=== PATIENT | female | born 1985 ===

== ENCOUNTER 2020-06-26 21:00 | Inpatient (IN) | payer BC, OTHER ==
[~2020-06-26 21:00] MED LIST: Bupivacaine 0.25% HCL 30 ML VIAL ONE
[2020-06-26 21:32] VITALS: BMI 31.3
[2020-06-26] MEDS ORDERED: NS / Oxytocin 40 units/1000ml 1,000 ML IV PRN (22:05)
[2020-06-26] MEDS ORDERED: HYDROcodone/Acetaminophen 5/325 mg Tablet PO PRN (22:05)
[2020-06-26] MEDS ORDERED: Lidocaine 1% (PF) 30 ML VIAL SC PRN (22:05)
[2020-06-26] MEDS ORDERED: Ondansetron PF 4 MG/2 ML Vial IVP PRN ×2 (22:05→23:35)
[2020-06-26] MEDS ORDERED: hydrALAZINE 20 MG/ML VIAL SLOW IVP PRN (22:05)
[2020-06-26] MEDS ORDERED: Butorphanol Tartrate 1 MG/ML VIAL SLOW IVP PRN (22:05)
[2020-06-26] MEDS ORDERED: Promethazine HCl 25 MG/ML VIAL IM PRN ×2 (22:05→23:35)
[2020-06-26] MEDS ORDERED: Ibuprofen 800 MG TAB PO PRN (22:05)
--- NOTE | 2020-06-26 22:09 | PDOC.LDHP ---
Labor and Delivery H&P Chief complaint: contractions HPI: Patient of Dr Aviles who is away C/O: CTX at 39 weeks 6 days 35 yo G1 with regular CTX since 6PM and some increase in nausea and emesis. No LOF, no VB, good FM. Review of Systems: complete ROS completed and as per HPI Current gestational age (weeks): 39 (6D) Dating criteria: last menstrual period Grav: 1 Current complications: none Abnormal US findings: No Past Medical History: Remote Asthma HX Current medications: pre- vitamins Previous surgical history: other (wisdom teeth T&A) Allergies/Adverse Reactions: Allergies Allergy/AdvReac Type Severity Reaction Status Date / Time No Known Drug Allergies Allergy Verified 06/26/20 21:20 Social history: none - Physical Exam Vital signs reviewed and normal: yes (141/67 and 136/81. Initial BP was 180 systolic but taken during emesis.) General: NAD Abdomen: gravid Extremeties: no edema FHT: category 1 [place] contractions every: irregular on toco - Vaginal Exam cm dilated: 3 Effacement: 90% Station: -1 - Assessment L&D Assessment: term patient in labor - Plan Plan: admit to L&D, labor augmentation if indicated, informed consent obtained, anesthesia consult for pain management, other (Follow BPs. I have ordered a CMP as well. If no cervical change noted, we will start oxytocin augmentation.)
[2020-06-26] MEDS ORDERED: Fentanyl 4 mcg/Bup 0.1% Cadd 100 ML ONE (22:51)
[2020-06-26 22:58] LABS: Hemoglobin 11.8 g/dL (12.0-16.0); Mean Corpuscular HGB CONC 34.3 g/dL (32.0-36.0); Mean Corpuscular Hemoglobin 33.9 pg (27.0-31.0); Mean Platelet Volume 10.6 fL (7.4-10.4); Platelet Count 108 thou/uL (130-400); RBC Distribution Width 12.2 % (11.5-14.5); Red Blood Cell (RBC) Count 3.49 mill/uL (4.20-5.40); White Blood Cell (WBC) Count 10.3 thou/uL (4.8-10.8)
[2020-06-26] MEDS: Lactated Ringer's 1,000 ML IV SCH (23:04)
[2020-06-26 23:22] LABS: Syphilis Antibody Nonreactive (Nonreactive); Syphilis Antibody Index 0.08 S/CO (<1.00 Non-Reactive)
[2020-06-26 23:28] LABS: HBSAg Index 0.21 S/CO (0-0.99); HIV (1/2) Antibody/Antigen Non-Reactive (NonReactive); HIV 1/2 INDEX 0.06 S/CO (<1.00); Hep B Surf Ag Non-Reactive S/CO (NonReactive)
[2020-06-26] MEDS ORDERED: EPHEDRINE 25 MG/5 ML SYRINGE SLOW IVP PRN (23:35)
[2020-06-26] MEDS ORDERED: Naloxone HCl 0.4 mg/ml Vial IVP PRN ×2 (23:35)
[2020-06-26] MEDS ORDERED: Acetaminophen 325 MG TAB PO PRN (23:35)
[2020-06-26] MEDS ORDERED: Lactated Ringer's 500 ML IV PRN (23:35)
[2020-06-26] MEDS ORDERED: diphenhydrAMINE 50 MG/ML VIAL IVP PRN (23:35)
[2020-06-26] MEDS ORDERED: Communication Order-Pharmacy FS SCH (23:45)
[2020-06-26] MEDS ORDERED: Fentanyl 4 mcg/Bupivacaine 0.1% Cassette 100 ML EPIDURAL SCH (23:45)
[2020-06-27] MEDS: Lactated Ringer's 1,000 ML IV SCH ×2 (05:34→17:15)
[2020-06-27] MEDS: NS w/ Oxytocin 10 units 500 ML IV SCH ×2 (05:35→08:49)
[2020-06-27] MEDS ORDERED: Fentanyl 4 mcg/Bup 0.1% Cadd 100 ML ONE (07:33)
[2020-06-27] MEDS ORDERED: Furosemide 20 MG/2 ML VIAL SLOW IVP SCH (11:30)
[2020-06-27] MEDS ORDERED: Ondansetron PF 4 MG/2 ML Vial IVP PRN (11:36)
[2020-06-27] MEDS ORDERED: HYDROcodone/Acetaminophen 5/325 mg Tablet PO PRN ×2 (11:36)
[2020-06-27] MEDS ORDERED: Varicella virus, LIVE 0.5 ML VIAL SC ONE (11:36)
[2020-06-27] MEDS ORDERED: Adacel (T-DAP) 0.5 ML SYRINGE IM ONE (11:36)
[2020-06-27] MEDS ORDERED: Zolpidem Tartrate 5 MG TAB PO PRN (11:36)
[2020-06-27] MEDS ORDERED: Misoprostol 200 MCG TAB VAG PRN (11:36)
[2020-06-27] MEDS ORDERED: Bisacodyl 10 MG SUPP PR PRN (11:36)
[2020-06-27] MEDS ORDERED: Milk Of Magnesia 30 ML UDCUP PO PRN (11:36)
[2020-06-27] MEDS ORDERED: Preparation H Ointment 28 GM TUBE PR PRN (11:36)
[2020-06-27] MEDS ORDERED: Benzocaine-Menthol 82.5 ML CAN TOP PRN (11:36)
[2020-06-27] MEDS ORDERED: hydrALAZINE 20 MG/ML VIAL SLOW IVP PRN (11:36)
[2020-06-27] MEDS ORDERED: Measles/Mumps/Rubella 10 MCG/0.5 ML VIAL SC ONE (11:36)
[2020-06-27] MEDS ORDERED: Lanolin Ointment 7 GM TUBE TOP PRN (11:36)
[2020-06-27] MEDS ORDERED: Promethazine HCl 25 MG/ML VIAL IM PRN (11:36)
[2020-06-27] MEDS ORDERED: diphenhydrAMINE 25 MG CAP PO PRN (11:36)
--- NOTE | 2020-06-27 11:39 | PDOC.OPDEL ---
OB Operative/Delivery Note Delivery Dr/Surgeon: Imani Pre-Delivery Diagnosis: active labor Procedure/Post Delivery Dx: spontaneous vaginal delivery Weeks gestation: 40 Anesthesia: epidural - Findings A Sex: female ("Johanna Aceves") Weight: 7 lb 8 oz - 1 min: 8 - 5 min: 9 - Additional Findings/Plan Placenta delivered: spontaneous Repaired Obstetrical Laceration: right labial (+ small 1st degree perineal) Estimated blood loss: 135ml Post delivery plan: routine recovery
[2020-06-27] MEDS ORDERED: NS / Oxytocin 40 units/1000ml 1,000 ML IV SCH (11:45)
[2020-06-27] MEDS: Ibuprofen 800 MG TAB PO SCH ×2 (12:58→20:52)
[2020-06-27 13:26] LABS: SARS-CoV-2 MS2 Positive; SARS-CoV-2 N Gene Negative; SARS-CoV-2 S Gene Negative; SARS-CoV-2 by NAA Not Detected (NotDetected); SARS-CoV-2 orf1ab Negative
[2020-06-27] MEDS ORDERED: Tranexamic Acid 1,000 MG in Sodium Chloride 0.9% 250 ML 250 ML IVPB STA (13:54)
[2020-06-27] MEDS ORDERED: Tranexamic Acid 1,000 MG/10 ML VIAL ONE (13:56)
[2020-06-27] MEDS ORDERED: Methylergonovine 0.2 MG/ML VIAL ONE (14:09)
[2020-06-27] MEDS ORDERED: Carboprost 250 MCG/ML AMP ONE (14:09)
--- NOTE | 2020-06-27 14:10 | PDOC.BPN ---
- Brief Progress Note Encounter Date: 06/27/20 Encounter Time: 14:02 Patient with PP bleeding, given cytotec and TXA. Manually extracted 575ml of clot. Total QBL now 1605ml. Will give hemabate. Labs ordered.
[2020-06-27] MEDS ORDERED: Diphenoxylate HCl/Atropine Tablet PO PRN (14:11)
[2020-06-27] MEDS ORDERED: Labetalol HCl 100 MG/20 ML VIAL SLOW IVP PRN (14:28)
[2020-06-27 14:41] LABS: Mean Corpuscular HGB CONC 34.8 g/dL (32.0-36.0); Mean Corpuscular Hemoglobin 34.4 pg (27.0-31.0); Mean Corpuscular Volume 98.9 fL (78.0-98.0); Mean Platelet Volume 10.6 fL (7.4-10.4); Platelet Count 159 thou/uL (130-400); RBC Distribution Width 12.4 % (11.5-14.5); Red Blood Cell (RBC) Count 3.19 mill/uL (4.20-5.40)
[2020-06-27 14:47] LABS: Fibrinogen 353 mg/dL (253-463)
[2020-06-27 14:48] LABS: PTT 27.7 sec (22.9-36.1)
[2020-06-27 14:49] LABS: D-Dimer Test 3.53 *mcg/mL (0.27-0.43)
[2020-06-27 14:59] LABS: FSP-Qualitative ABNORMAL (Normal); FSP-Semiquantitative >=5 & <20 mcg/mL (Less than 5)
--- NOTE | 2020-06-27 17:29 | PDOC.BPN ---
- Brief Progress Note Encounter Date: 06/27/20 Encounter Time: 17:28 Bleeding improved, vitals stable. LE ultrasound performed for swelling and negative. Patient ready for transfer to . Will repeat hemagram in am.
[2020-06-27] MEDS: Ferrous Sulfate 325 MG TAB PO SCH (18:26)
--- NOTE | 2020-06-27 18:46 | ULT ---
BILATERAL LOWER EXTREMITY VENOUS DUPLEX EXAM: History: Bilateral leg pain and swelling. FINDINGS: Real-time color doppler evaluation of the right and left lower extremities were performed from groin to calf. This includes evaluation of the common femoral, superficial, and profunda femoral, saphenous , popliteal and posterior tibial veins. This shows a patent deep venous system bilaterally. There is normal compressibility and augmentation. There is no evidence of DVT. IMPRESSION: No evidence of DVT of either lower extremity. POS: JONNA
[2020-06-27] MEDS: Docusate Calcium (SURFAK) 240 MG CAP PO SCH (20:53)
[2020-06-28] MEDS: Ibuprofen 800 MG TAB PO SCH ×2 (05:21→13:46)
[2020-06-28 06:11] LABS: #Eosinphils 0.1 thou/uL (0.0-0.7); #Lymphocytes 1.5 thou/uL (1.20-3.40); #Monocytes 0.6 thou/uL (0.11-0.59); #Neutrophils 6.8 thou/uL (1.40-6.50); %Basophils 0.2 % (0.0-1.0); %Eosinophils 1.5 % (0.0-10.0); %Lymphocytes 16.9 % (21.0-51.0); %Monocytes 6.5 % (0.0-10.0); Hemoglobin 7.2 g/dL (12.0-16.0); Mean Corpuscular HGB CONC 34.4 g/dL (32.0-36.0); Mean Corpuscular Hemoglobin 34.2 pg (27.0-31.0); Mean Corpuscular Volume 99.6 fL (78.0-98.0); Mean Platelet Volume 9.5 fL (7.4-10.4); Platelet Count 90 thou/uL (130-400); RBC Distribution Width 12.4 % (11.5-14.5); Red Blood Cell (RBC) Count 2.11 mill/uL (4.20-5.40); White Blood Cell (WBC) Count 9.1 thou/uL (4.8-10.8)
--- NOTE | 2020-06-28 08:38 | PDOC.PP ---
Post Progress Note Post Day #: 1 Subjective: doing well, denies sx of anemia, hasn't eaten much yet, baby latching well PO intake tolerated: yes Flatus: yes Ambulation: yes Vital Signs (12 hours) Temp Pulse Resp BP Pulse Ox 06/28/20 05:15 98.8 F 110 H 18 119/55 L 98 06/28/20 00:30 98.7 F 110 H 18 135/77 98 06/27/20 20:42 98.8 F 104 H 18 133/72 98 Weight Weight 194 lb - Physical Examination General: NAD Respiratory: non-labored breathing Abdominal: no distention Fundus firm & at: below umb Skin: no rash Psychiatric: A&Ox3, normal affect Result Diagrams: 06/28/20 05:47 Additional Labs: Post Labs Hep Bs Antigen Non-Reactive S/CO (NonReactive) 06/26/20 22:38 Blood Type A POSITIVE 06/26/20 23:41 (1) hemorrhage Code(s): O72.1 - OTHER IMMEDIATE HEMORRHAGE Status: Acute (2) Anemia Code(s): D64.9 - ANEMIA, UNSPECIFIED Status: Acute (3) Vaginal delivery Code(s): O80 - ENCOUNTER FOR FULL-TERM UNCOMPLICATED DELIVERY Status: Acute - Assessment/Plan PPD 1 doing well, request DC home, but PPH reported yesterday and anemia noted today. Will follow for symptoms closely-anemia warnings given.
[2020-06-28] MEDS ORDERED: Prenatal Vitamin 1 TAB PO SCH (09:00)
[2020-06-28] MEDS: Ferrous Sulfate 325 MG TAB PO SCH (09:06)
[2020-06-28] MEDS: Docusate Calcium (SURFAK) 240 MG CAP PO SCH (09:06)
[2020-06-28 09:21] VITALS: BP 131/69; TEMP 98.2
== END 2020-06-28 16:50 | disposition home or self-care (01) | DRG 806 ==
LOC: L&D/OP 21:00 → L&D 22:35 → 3SW 06-27 17:58
PROVIDERS: ADMIT Obstetrics & Gynecology; ATTEND Obstetrics & Gynecology
PROC: 10E0XZZ Delivery of Products of Conception, External Approach (ICD-10-PCS; principal; 2020-06-27)
PROC: 0HQ9XZZ Repair Perineum Skin, External Approach (ICD-10-PCS; 2020-06-27)
DX: O70.0 First degree perineal laceration during delivery (principal); O72.1 Other immediate postpartum hemorrhage; Z37.0 Single live birth; Z3A.39 39 weeks gestation of pregnancy; Z20.828 Contact with and (suspected) exposure to other viral communicable diseases
CPT/HCPCS: 36415; 51702; 85025; 85027; 85049; 85300; 85362; 85379; 85384; 85610; 85730; 86780; 86850; 86900; 86901; 87340; 87389; 87635; 93970; 99285; J1940; J2210; J2590; J3490; J7050; S0020; U0003